=== PATIENT | female | born 1945 | race Caucasian/White ===

== ENCOUNTER 2018-03-10 14:26 | Outpatient (REF) | payer MEDICARE, BC, SELFPAY ==
[2018-03-10 21:53] LABS: ALT 39 U/L (12-78); AST 31 U/L (15-37); Albumin 3.9 g/dL (3.4-5.0); Alkaline Phosphatase 122 U/L (46-116); BUN 21 mg/dL (7-18); Bilirubin, Total 0.4 mg/dL (0.2-1.0); CREATININE 0.76 mg/dL (0.55-1.02); Calcium 8.8 mg/dL (8.5-10.1); Chloride 106 mmol/L (98-107); Cholesterol 212 mg/dL (50-200); Glucose 79 mg/dL (70-100); HDL Cholesterol 59 mg/dL (40-60); LDL CHOLESTEROL 138 mg/dL (<100); Potassium 4.2 mmol/L (3.5-5.1); Sodium 143 mmol/L (136-145); TSH 0.74 uIU/mL (0.358-3.74); Total Protein 7.5 g/dL (6.4-8.2); Triglyceride 94 mg/dL (30-150)
== END 2018-03-10 14:46 ==
LOC: NCHCN 14:26
PROVIDERS: Visit Provider Family Medicine
DX: E03.9 Hypothyroidism, unspecified (principal); I10 Essential (primary) hypertension; E66.9 Obesity, unspecified
CPT/HCPCS: 80053; 80061; 83721; 84443

== ENCOUNTER 2019-03-02 09:48 | Outpatient (REF) | payer MEDICARE, BC, SELFPAY ==
[2019-03-02 22:47] LABS: ALT 46 U/L (14-59); AST 36 U/L (15-37); Albumin 3.9 g/dL (3.4-5.0); Alkaline Phosphatase 105 U/L (46-116); Anion Gap 7.1 mmol/L (3-11); BUN 28 mg/dL (7-18); Bilirubin, Total 0.4 mg/dL (0.2-1.0); CO2 29.9 mmol/L (21.0-32.0); CREATININE 0.85 mg/dL (0.55-1.02); Calcium 9.3 mg/dL (8.5-10.1); Calculated LDL 134 mg/dL; Chloride 105 mmol/L (98-107); Cholesterol 211 mg/dL (50-200); Glucose 91 mg/dL (70-100); HDL Cholesterol 55 mg/dL (40-60); Potassium 4.2 mmol/L (3.5-5.1); Sodium 142 mmol/L (136-145); TSH 3.19 uIU/mL (0.36-3.74); Total Protein 7.5 g/dL (6.4-8.2); Triglyceride 110 mg/dL (30-150)
== END 2019-03-02 10:08 ==
LOC: NCHCN 09:48
PROVIDERS: Visit Provider Family Medicine
DX: I10 Essential (primary) hypertension (principal); E03.9 Hypothyroidism, unspecified; E78.5 Hyperlipidemia, unspecified; E66.9 Obesity, unspecified
CPT/HCPCS: 80053; 80061; 83735; 84443

== ENCOUNTER 2019-05-11 11:42 | Outpatient (REF) | payer MEDICARE, BC, SELFPAY ==
[2019-05-11 21:50] LABS: Calculated LDL 133 mg/dL; Cholesterol 211 mg/dL (<200); HDL Cholesterol 53 mg/dL (40-60); TSH 0.87 uIU/mL (0.36-3.74); Triglyceride 125 mg/dL (<150)
== END 2019-05-11 12:02 ==
LOC: NCHCN 11:42
PROVIDERS: Visit Provider Family Medicine
DX: I10 Essential (primary) hypertension (principal); F41.9 Anxiety disorder, unspecified; E03.9 Hypothyroidism, unspecified; E78.5 Hyperlipidemia, unspecified
CPT/HCPCS: 80061; 84443